=== PATIENT | female | born 2000 | race Caucasian/White ===

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

== ENCOUNTER → 2022-05-28 | Outpatient (CLI) | payer BC ==
[2022-05-28 17:05] LABS: HCG, SERUM QUANTITATIVE 65.6 MIU/ML (<4.2)
[2022-05-28 17:10] LABS: HCG, SERUM QUALITATIVE POSITIVE (NEGATIVE)
== END ==
LOC: M WUC 13:28
PROVIDERS: ATTEND Physician Assistant
DX: Z32.00 Encounter for pregnancy test, result unknown (principal)

== ENCOUNTER → 2022-06-01 | Outpatient (CLI) | payer BC ==
[2022-06-01 09:26] LABS: HEMATOCRIT 39.6 % (36.0-47.0); HEMOGLOBIN 13.2 g/dl (12.0-15.5); MEAN CORPUSCULAR HGB CONC 33.3 g/dl (32.0-36.5); PLATELET COUNT, AUTOMATED 397 10^3/uL (150-450); RED BLOOD COUNT 4.26 10^6/uL (4.00-5.40); WHITE BLOOD COUNT 13.2 10^3/uL (4.0-10.0)
[2022-06-01 09:55] LABS: ALKALINE PHOSPHATASE 121 U/L (46-116); ALT/SGPT 15 U/L (7.0-40); AST/SGOT 20 U/L (<34); BILIRUBIN,TOTAL 0.5 MG/DL (0.3-1.2); BLOOD UREA NITROGEN 11 MG/DL (9-23); CALCIUM LEVEL 9.6 MG/DL (8.5-10.1); CARBON DIOXIDE LEVEL 24 MMOL/L (20-31); CHLORIDE LEVEL 104 MMOL/L (98-107); CREATININE FOR GFR 0.66 MG/DL (0.55-1.30); GLOMERULAR FILTRATION RATE > 60.0 (>60); GLUCOSE, FASTING 112 MG/DL (60-100); HCG, SERUM QUANTITATIVE 297.3 MIU/ML (<4.2); POTASSIUM SERUM 4.1 MMOL/L (3.5-5.1); SODIUM LEVEL 139 MMOL/L (136-145); TOTAL PROTEIN 7.2 G/DL (5.7-8.2)
[2022-06-01 09:59] LABS: THYROID STIMULATING HORMONE 5.277 uIU/ML (0.55-4.78)
[2022-06-01 14:43] LABS: FREE T4 1.03 NG/DL (0.89-1.76)
== END ==
LOC: M WUC 08:03
PROVIDERS: ATTEND Physician Assistant
DX: R94.6 Abnormal results of thyroid function studies (principal); Z32.00 Encounter for pregnancy test, result unknown

== ENCOUNTER → 2022-07-24 | Outpatient (CLI) | payer BC ==
[2022-07-24 11:05] LABS: HEMATOCRIT 37.5 % (36.0-47.0); HEMOGLOBIN 12.6 g/dl (12.0-15.5); MEAN CORPUSCULAR HEMOGLOBIN 30.9 pg (27.0-33.0); MEAN CORPUSCULAR HGB CONC 33.6 g/dl (32.0-36.5); MEAN CORPUSCULAR VOLUME 91.9 fl (80.0-96.0); PLATELET COUNT, AUTOMATED 330 10^3/uL (150-450); RED BLOOD COUNT 4.08 10^6/uL (4.00-5.40); WHITE BLOOD COUNT 12.4 10^3/uL (4.0-10.0)
[2022-07-24 11:06] LABS: FREE T4 1.16 NG/DL (0.89-1.76)
[2022-07-24 11:07] LABS: THYROID STIMULATING HORMONE 2.547 uIU/ML (0.55-4.78)
[2022-07-24 11:31] LABS: HIV 1&2 SCREEN CENTAUR NEGATIVE (NEGATIVE)
[2022-07-24 11:40] LABS: HEPATITIS C VIRUS ABY INDEX 0.1 INDEX (<0.8)
== END ==
LOC: M PLALAB 08:10
PROVIDERS: ATTEND Advanced Practice Midwife
DX: O99.281 Endocrine, nutritional and metabolic diseases complicating pregnancy, first trimester (principal); Z3A.00 Weeks of gestation of pregnancy not specified

== ENCOUNTER → 2022-08-03 | Outpatient (CLI) | payer BC ==
[2022-08-03 11:36] LABS: HEMATOCRIT 37.3 % (36.0-47.0); HEMOGLOBIN 12.3 g/dl (12.0-15.5); MEAN CORPUSCULAR HEMOGLOBIN 30.1 pg (27.0-33.0); MEAN CORPUSCULAR VOLUME 91.2 fl (80.0-96.0); PLATELET COUNT, AUTOMATED 340 10^3/uL (150-450); RED BLOOD COUNT 4.09 10^6/uL (4.00-5.40); WHITE BLOOD COUNT 12.4 10^3/uL (4.0-10.0)
[2022-08-03 12:02] LABS: FREE T4 1.15 NG/DL (0.89-1.76)
[2022-08-03 13:16] LABS: GC DNA AMPLIFICATION NEGATIVE (NEGATIVE)
[2022-08-03 14:38] LABS: THYROID STIMULATING HORMONE 1.999 uIU/ML (0.55-4.78)
[2022-08-03 19:40] LABS: HIV 1&2 SCREEN CENTAUR NEGATIVE (NEGATIVE)
== END ==
LOC: M PLALAB 08:28
PROVIDERS: ATTEND Advanced Practice Midwife
DX: O99.281 Endocrine, nutritional and metabolic diseases complicating pregnancy, first trimester (principal)

== ENCOUNTER → 2022-09-25 | Outpatient (CLI) | payer BC | LOC: M WHC 06:34 | PROVIDERS: ATTEND Specialist | DX: Z34.02 Encounter for supervision of normal first pregnancy, second trimester (principal) ==

== ENCOUNTER → 2022-10-22 | Outpatient (CLI) | payer BC | LOC: M WHC 14:04 | PROVIDERS: ATTEND Obstetrics & Gynecology | DX: O99.282 Endocrine, nutritional and metabolic diseases complicating pregnancy, second trimester (principal); Z3A.00 Weeks of gestation of pregnancy not specified ==

== ENCOUNTER → 2022-11-09 | Outpatient (CLI) | payer BC ==
[2022-11-09 14:54] LABS: HEMATOCRIT 32.1 % (36.0-47.0); HEMOGLOBIN 10.4 g/dl (12.0-15.5); MEAN CORPUSCULAR HEMOGLOBIN 29.3 pg (27.0-33.0); MEAN CORPUSCULAR HGB CONC 32.4 g/dl (32.0-36.5); MEAN CORPUSCULAR VOLUME 90.4 fl (80.0-96.0); PLATELET COUNT, AUTOMATED 334 10^3/uL (150-450); RED BLOOD COUNT 3.55 10^6/uL (4.00-5.40); WHITE BLOOD COUNT 15.6 10^3/uL (4.0-10.0)
[2022-11-09 15:20] LABS: ALBUMIN 2.6 G/DL (3.2-5.2); ALKALINE PHOSPHATASE 125 U/L (46-116); ALT/SGPT 13 U/L (7.0-40); AST/SGOT 9 U/L (<34); BILIRUBIN,TOTAL 0.3 MG/DL (0.3-1.2); BLOOD UREA NITROGEN 7 MG/DL (9-23); CALCIUM LEVEL 9.6 MG/DL (8.5-10.1); CARBON DIOXIDE LEVEL 24 MMOL/L (20-31); CHLORIDE LEVEL 103 MMOL/L (98-107); CREATININE FOR GFR 0.53 MG/DL (0.55-1.30); GLOMERULAR FILTRATION RATE > 60.0 (>60); GLUCOSE CHALLENGE TEST 1 HOUR 141 MG/DL (LESS THAN 140); GLUCOSE, FASTING 141 MG/DL (60-100); POTASSIUM SERUM 3.8 MMOL/L (3.5-5.1); SODIUM LEVEL 134 MMOL/L (136-145)
[2022-11-09 15:22] LABS: FREE T4 0.91 NG/DL (0.89-1.76); THYROID STIMULATING HORMONE 1.007 uIU/ML (0.55-4.78)
[2022-11-09 15:28] LABS: TOTAL PROTEIN,RANDOM URINE < 6.0 MG/DL (0.0-14.0)
[2022-11-09 16:19] LABS: GC DNA AMPLIFICATION NEGATIVE (NEGATIVE)
== END ==
LOC: M PLALAB 09:19
PROVIDERS: ATTEND Obstetrics & Gynecology
DX: Z34.02 Encounter for supervision of normal first pregnancy, second trimester (principal)

== ENCOUNTER → 2022-11-27 | Outpatient (CLI) | payer BC | LOC: M LAB 08:03 | PROVIDERS: ATTEND Obstetrics & Gynecology | DX: O99.810 Abnormal glucose complicating pregnancy (principal) ==

== ENCOUNTER → 2022-12-25 | Outpatient (CLI) | payer BC | LOC: M WHC 13:54 | PROVIDERS: ATTEND Obstetrics & Gynecology | DX: Z36.2 Encounter for other antenatal screening follow-up (principal) ==

== ENCOUNTER → 2023-01-12 | Outpatient (CLI) | payer BC | LOC: M WHC 10:33 | PROVIDERS: ATTEND Advanced Practice Midwife | DX: I10 Essential (primary) hypertension (principal) ==

== ENCOUNTER → 2023-12-29 | Outpatient (REF) | payer OTHER ==
[~2023-12-29] MED LIST: AMLO1TAB24 PO; COLA100C5 PO; FURO20TA2 PO; IBUP80TA PO; LABE100T40 PO; LABE100T6 PO; LEVO50TA5 PO; PERCOCET PO; PRENTAB9 PO
[2023-12-29 16:53] LABS: Trichomonas vaginalis (AMP) NOT DETECTED (NEGATIVE)
[2023-12-29 17:17] LABS: GC DNA AMPLIFICATION NEGATIVE (NEGATIVE)
== END ==
LOC: M SFHCWAGY 14:54
PROVIDERS: ATTEND Obstetrics & Gynecology
DX: Z12.4 Encounter for screening for malignant neoplasm of cervix (principal); Z11.3 Encounter for screening for infections with a predominantly sexual mode of transmission

== ENCOUNTER → 2024-08-14 | Outpatient (CLI) | payer BC | LOC: M WHC 09:17 | PROVIDERS: ATTEND Physician Assistant | DX: R59.0 Localized enlarged lymph nodes (principal) ==

== ENCOUNTER → 2024-09-05 | Outpatient (CLI) | payer BC | LOC: M PLAIMG 10:02 | PROVIDERS: ATTEND Physician Assistant | DX: R59.0 Localized enlarged lymph nodes (principal) ==

== ENCOUNTER → 2024-09-07 | Outpatient (CLI) | payer BC ==
[2024-09-07 12:33] LABS: BASO % 0.3 % (0.0-1.0); EOS # 0.3 10^3/uL (0.0-0.5); HEMATOCRIT 38.5 % (36.0-47.0); LYMPH # 3.8 10^3/uL (1.5-5.0); LYMPH % 30.6 % (24.0-44.0); MEAN CORPUSCULAR HGB CONC 33.8 g/dl (32.0-36.5); MEAN CORPUSCULAR VOLUME 88.7 fl (80.0-96.0); MONO # 0.7 10^3/uL (0.0-0.8); MONO % 5.4 % (2.0-8.0); NEUTROPHILS # 7.7 10^3/uL (1.5-8.5); NEUTROPHILS % 61.2 % (36.0-66.0); PLATELET COUNT, AUTOMATED 354 10^3/uL (150-450); RED BLOOD COUNT 4.34 10^6/uL (4.00-5.40); WHITE BLOOD COUNT 12.5 10^3/uL (4.0-10.0)
[2024-09-07 13:10] LABS: THYROID STIMULATING HORMONE 1.976 uIU/ML (0.55-4.78)
[2024-09-07 13:38] LABS: FOLLICLE STIMULATING HORMONE 3.1 mIU/ML; LUTEINIZING HORMONE 5.5 mIU/ML; PROLACTIN 5.22 NG/ML
[2024-09-07 13:39] LABS: ALBUMIN 3.9 G/DL (3.2-5.2); ALKALINE PHOSPHATASE 129 U/L (35-104); ALT/SGPT 19 U/L (7.0-40); AST/SGOT 15 U/L (<34); BILIRUBIN,TOTAL 0.3 MG/DL (0.3-1.2); BLOOD UREA NITROGEN 14 MG/DL (9-23); CALCIUM LEVEL 9.4 MG/DL (8.5-10.1); CARBON DIOXIDE LEVEL 24 MMOL/L (20-31); CHLORIDE LEVEL 105 MMOL/L (98-107); CREATININE FOR GFR 0.61 MG/DL (0.55-1.30); FREE T4 1.07 NG/DL (0.89-1.76); GLOMERULAR FILTRATION RATE > 90.0 (>60); GLUCOSE, FASTING 102 MG/DL (60-100); POTASSIUM SERUM 4.4 MMOL/L (3.5-5.1); SODIUM LEVEL 140 MMOL/L (136-145); TOTAL PROTEIN 7.2 G/DL (5.7-8.2)
[2024-09-07 14:33] LABS: HCG, SERUM QUALITATIVE NEGATIVE (NEGATIVE)
[2024-09-08 12:43] LABS: INSULIN TOTAL2 95.6 uIU/mL (<=18.4)
== END ==
LOC: M LAB 11:36 → M PLALAB 11:36
PROVIDERS: ATTEND Physician Assistant
DX: R59.0 Localized enlarged lymph nodes (principal); E66.9 Obesity, unspecified

== ENCOUNTER → 2024-12-03 | Outpatient (CLI) | payer BC ==
[2024-12-03 10:30] LABS: CORTISOL AM 10.4 UG/DL (4.3-22.4)
[2024-12-03 10:31] LABS: ALT/SGPT 20 U/L (7.0-40); AST/SGOT 25 U/L (<34); CALCIUM LEVEL 8.9 MG/DL (8.5-10.1); CARBON DIOXIDE LEVEL 27 MMOL/L (20-31); CHLORIDE LEVEL 104 MMOL/L (98-107); CREATININE FOR GFR 0.66 MG/DL (0.55-1.30); GLOMERULAR FILTRATION RATE > 90.0 (>60); POTASSIUM SERUM 4.5 MMOL/L (3.5-5.1); SODIUM LEVEL 141 MMOL/L (136-145)
[2024-12-04 23:17] LABS: C-PEPTIDE 3.31 ng/mL (0.80-3.85)
== END ==
LOC: M LAB 09:00
PROVIDERS: ATTEND Physician Assistant
DX: E88.810 Metabolic syndrome (principal)

== ENCOUNTER 2024-12-12 18:09 | Emergency (ER) | payer BC ==
[~2024-12-12] VITALS: Ht 160 cm; Wt 109.1 kg
[2024-12-12 20:22] LABS: URINE PREG TEST NEGATIVE (NEGATIVE)
[2024-12-12] MEDS: ACETAMINOPHEN 325 MG TAB PO ONE (20:26)
[2024-12-12 20:35] LABS: KETONE, URINE AUTO RFX NEGATIVE (NEGATIVE); MUCUS, URINE RFX SMALL (NEGATIVE); NITRITE, URINE AUTO RFX NEGATIVE (NEGATIVE); RBC, URINE AUTO RFX 6 /HPF (0-3); SQUAM EPITHELIAL CELL UR AURFX 10 /HPF (0-6)
[2024-12-12 20:36] LABS: LEUKOCYTE ESTERASE UR AUTO RFX 3+ (NEGATIVE); WBC, URINE AUTO RFX 25 /HPF (0-3)
[2024-12-12 20:57] LABS: ALT/SGPT 64 U/L (7.0-40); AST/SGOT 65 U/L (<34); CALCIUM LEVEL 8.8 MG/DL (8.5-10.1); CARBON DIOXIDE LEVEL 26 MMOL/L (20-31); CHLORIDE LEVEL 102 MMOL/L (98-107); CREATININE FOR GFR 0.77 MG/DL (0.55-1.30); GLOMERULAR FILTRATION RATE > 90.0 (>60); POTASSIUM SERUM 4.1 MMOL/L (3.5-5.1); SODIUM LEVEL 139 MMOL/L (136-145)
[2024-12-12 20:58] LABS: FREE T4 1.06 NG/DL (0.89-1.76)
[2024-12-12 21:02] LABS: PLATELET COUNT, AUTOMATED 210 10^3/uL (150-450)
[2024-12-12 21:04] LABS: MONO SCRN NEGATIVE (NEGATIVE)
[2024-12-12] MEDS ORDERED: CEFD1CAP9 PO (21:30)
[2024-12-12 21:34] VITALS: BP 131/84; TEMP 97.2; O2SAT 97
[2024-12-12 21:34] LABS: ATYPICAL LYMPH 10 % (0-5); EOSINOPHILS 6 % (0-3); LYMPHOCYTES 43 % (16-44); MONOCYTES 5 % (0-5); NEUTROPHILS 36 % (28-66)
[2024-12-12] MEDS: CEFDINIR 300 MG CAP PO ONE (21:36)
[2024-12-12 21:40] LABS: PLATELET ESTIMATE NORMAL (NORMAL)
== END 2024-12-12 21:39 | disposition home or self-care (01) ==
LOC: M ED 18:09
DX: N39.0 Urinary tract infection, site not specified (principal); R76.0 Raised antibody titer; Z91.018 Allergy to other foods; Z79.2 Long term (current) use of antibiotics; Z79.899 Other long term (current) drug therapy

== ENCOUNTER 2024-12-15 13:37 | Emergency (ER) | payer BC ==
[~2024-12-15] VITALS: Ht 160 cm; Wt 104.0 kg
[2024-12-15 17:10] LABS: KETONE, URINE AUTO RFX NEGATIVE (NEGATIVE); LEUKOCYTE ESTERASE UR AUTO RFX NEGATIVE (NEGATIVE); NITRITE, URINE AUTO RFX NEGATIVE (NEGATIVE); RBC, URINE AUTO RFX 4 /HPF (0-3); SQUAM EPITHELIAL CELL UR AURFX 1 /HPF (0-6); WBC, URINE AUTO RFX 2 /HPF (0-3)
[2024-12-15] MEDS: NS (Normal Saline) 0.9% 1,000 ML IV ONE (19:43)
[2024-12-15] MEDS: KETOROLAC 30 MG/ML 1 ML VIAL IV ONE (19:47)
[2024-12-15 19:49] LABS: PLATELET COUNT, AUTOMATED 232 10^3/uL (150-450)
[2024-12-15 20:16] LABS: HCG, SERUM QUALITATIVE NEGATIVE (NEGATIVE)
[2024-12-15 20:18] LABS: CALCIUM LEVEL 8.8 MG/DL (8.5-10.1); CARBON DIOXIDE LEVEL 26 MMOL/L (20-31); CHLORIDE LEVEL 105 MMOL/L (98-107); CREATININE FOR GFR 0.73 MG/DL (0.55-1.30); GLOMERULAR FILTRATION RATE > 90.0 (>60); POTASSIUM SERUM 3.9 MMOL/L (3.5-5.1); SODIUM LEVEL 142 MMOL/L (136-145)
[2024-12-15 20:33] LABS: ATYPICAL LYMPH 18 % (0-5); EOSINOPHILS 3 % (0-3); LYMPHOCYTES 36 % (16-44); MONOCYTES 2 % (0-5); NEUTROPHILS 39 % (28-66); PLATELET ESTIMATE NORMAL (NORMAL)
[2024-12-15 21:23] LABS: ALT/SGPT 58 U/L (7.0-40); AST/SGOT 58 U/L (<34)
[2024-12-15 21:47] LABS: MONO SCRN NEGATIVE (NEGATIVE)
[2024-12-15 22:00] VITALS: BP 116/80; TEMP 97
[2024-12-15] MEDS ORDERED: CEFD1CAP9 PO (22:00)
[2024-12-15 22:01] VITALS: O2SAT 98
== END 2024-12-15 22:14 | disposition home or self-care (01) ==
LOC: M ED 13:37
DX: N10 Acute pyelonephritis (principal); Z91.018 Allergy to other foods; Z79.2 Long term (current) use of antibiotics; R30.0 Dysuria
CPT/HCPCS: 80048; 80076; 81001; 83605; 84703; 85025; 86308; 87086; 87486; 87581; 87633; 87798; 96374; 99284; J1885

== ENCOUNTER → 2024-12-15 | Outpatient (REF) | payer BC ==
[~2024-12-15] MED LIST changes: +CEFD1CAP9 PO
== END ==
LOC: M LAB REF 11:46
PROVIDERS: ATTEND Physician Assistant
DX: R30.0 Dysuria (principal)

== ENCOUNTER → 2025-03-25 | Outpatient (REF) | payer OTHER | LOC: M LAB REF 17:49 | DX: B34.9 Viral infection, unspecified (principal); J02.9 Acute pharyngitis, unspecified ==